=== PATIENT | male | born 1985 | race African-American/Black ===

== ENCOUNTER 2021-11-04 22:32 | Emergency (ER) | payer MEDICAID ==
[~2021-11-04 22:32] MED LIST: IBUP-2343 PO; VICOT PO
[2021-11-04 23:05] VITALS: BP 130/68
[2021-11-04 23:26] LABS: COVID AG,FIA SOURCE NASAL SWAB
== END 2021-11-05 00:33 | disposition home or self-care (01) ==
LOC: EMS 22:32
DX: U07.1 COVID-19 (principal); Z79.899 Other long term (current) drug therapy
CPT/HCPCS: 99283